=== PATIENT | male | born 1950 | race Caucasian/White ===

== ENCOUNTER 2022-08-26 05:11 | Inpatient (IN) | payer MEDICARE, BC ==
[~2022-08-26] VITALS: Ht 188 cm; Wt 115.2 kg
[~2022-08-26 05:11] MED LIST: ATOR40TA PO; HYDCHL25 PO; Hair, Skin & N1 EACH PO; METO50ER PO
[2022-08-26 05:32] LABS: BASOPHILS ABSOLUTE AUTO 0.08 K/mm3 (0.00-0.23); BASOPHILS PERCENT AUTO 1 % (0-2); EOSINOPHILS ABSOLUTE AUTO 0.24 K/mm3 (0.00-0.68); EOSINOPHILS PERCENT AUTO 3 % (0-6); Hematocrit 40.3 % (37.0-53.0); Hemoglobin 13.3 g/dL (13.5-17.5); IMMATURE GRAN ABSOLUTE AUTO 0.02 K/mm3 (0.00-0.10); IMMATURE GRAN PERCENT AUTO 0 % (0-1); LYMPHOCYTES ABSOLUTE AUTO 1.23 K/mm3 (0.84-5.20); LYMPHOCYTES PERCENT AUTO 13 % (21-46); MONOCYTES ABSOLUTE AUTO 0.72 K/mm3 (0.16-1.47); MONOCYTES PERCENT AUTO 8 % (4-13); Mean Corpuscular HGB 29.2 pg (26.0-34.0); Mean Corpuscular Volume 88 fL (80-100); Mean Platelet Volume 11.3 fL (9.1-12.4); NEUTROPHILS ABSOLUTE AUTO 7.23 K/mm3 (1.96-9.15); NEUTROPHILS PERCENT AUTO 76 % (41-73); Platelet Count 193 K/mm3 (150-400); RDW Coefficient Variation 13.1 % (11.7-14.2); RDW Standard Deviation 42.5 fL (35.1-46.3); Red Blood Cell Count 4.56 M/mm3 (4.30-5.90); White Blood Cell Count 9.52 K/mm3 (4.00-11.30)
[2022-08-26 05:54] LABS: Albumin, Blood 3.8 g/dL (3.4-5.0); Albumin/Globulin Ratio 1.1 (0.8-1.8); Bilirubin, Total 0.8 mg/dL (0.1-1.0); Bun/Creatinine Ratio 25.4 (12.0-20.0); Calcium, Blood 9.1 mg/dL (8.5-10.1); Creatinine, Blood 0.87 mg/dL (0.60-1.20); Globulin, Blood 3.6 g/dL (2.2-4.0); Total Protein, Blood 7.4 g/dL (6.4-8.2)
[2022-08-26 07:41] LABS: Influenza A, PCR NEGATIVE (NEGATIVE); Influenza B, PCR NEGATIVE (NEGATIVE); Resp Syncytial Virus, PCR NEGATIVE (NEGATIVE)
[2022-08-26 08:10] LABS: SARS-Cov-2 (COVID-19) PCR, MMC POSITIVE (NEGATIVE)
--- NOTE | 2022-08-26 18:00 | NUR ---
SHIFT SUMMARY PT HAS BEEN RESTING IN ROOM, THEY HAVE CALLED APPROPRIATELY FOR ASSISTANCE. PT HAS EXPRESSED A DESIRE TO THIS RN TO PURSUE ALL TREATEMENT OPTIONS FOR CURRENT CARDIAC CONDITION. PT HAS BEEN PLEASANT AND COOPERATIVE WITH ALL CARES. PT WAS TRANSITIONED FROM HEATED HIGH-FLOW NASAL CANNULA TO NASAL CANNULA AT 3L AND TOLERATED WELL WITH SPO2 REMAINING >93%. PT STATED AN IMPROVEMENT TO WORK OF BREATHING AFTER PRESCRIBED DIURETICS WERE ADMINISTERED. VITAL SIGNS HAVE REMAINED STABLE AND WNL.
[2022-08-27 04:01] LABS: BASOPHILS ABSOLUTE AUTO 0.03 K/mm3 (0.00-0.23); BASOPHILS PERCENT AUTO 0 % (0-2); EOSINOPHILS ABSOLUTE AUTO 0.03 K/mm3 (0.00-0.68); EOSINOPHILS PERCENT AUTO 0 % (0-6); Hematocrit 36.7 % (37.0-53.0); Hemoglobin 12.3 g/dL (13.5-17.5); IMMATURE GRAN ABSOLUTE AUTO 0.04 K/mm3 (0.00-0.10); IMMATURE GRAN PERCENT AUTO 0 % (0-1); LYMPHOCYTES ABSOLUTE AUTO 0.82 K/mm3 (0.84-5.20); LYMPHOCYTES PERCENT AUTO 6 % (21-46); MONOCYTES ABSOLUTE AUTO 1.22 K/mm3 (0.16-1.47); MONOCYTES PERCENT AUTO 9 % (4-13); Mean Corpuscular HGB 29.4 pg (26.0-34.0); Mean Corpuscular HGB Conc 33.5 g/dL (31.5-36.5); Mean Corpuscular Volume 88 fL (80-100); Mean Platelet Volume 11.6 fL (9.1-12.4); NEUTROPHILS ABSOLUTE AUTO 11.22 K/mm3 (1.96-9.15); NEUTROPHILS PERCENT AUTO 84 % (41-73); Platelet Count 176 K/mm3 (150-400); RDW Coefficient Variation 13.1 % (11.7-14.2); Red Blood Cell Count 4.19 M/mm3 (4.30-5.90); White Blood Cell Count 13.36 K/mm3 (4.00-11.30)
[2022-08-27 04:42] LABS: Albumin, Blood 3.4 g/dL (3.4-5.0); Bilirubin, Total 0.7 mg/dL (0.1-1.0); Bun/Creatinine Ratio 24.3 (12.0-20.0); Calcium, Blood 8.6 mg/dL (8.5-10.1); Creatinine, Blood 0.78 mg/dL (0.60-1.20); Globulin, Blood 3.3 g/dL (2.2-4.0); Potassium, Blood 3.7 mmol/L (3.5-5.5); Total Protein, Blood 6.7 g/dL (6.4-8.2)
--- NOTE | 2022-08-27 05:16 | NUR ---
SHIFT SUMMARY PT IS A&0X4, MOVES IND IN BED, USES THE URINAL IND, AND CALLS APPROPRIATELY. PT HAS BEEN SR/ST 90'S-100'S T/O THE SHIFT AND HIS HR RAISES W/ ACTIVITY. PT HAS BEEN ON 2L NC T/O NIGHT AND SPO2 >95%. HE DENIES ANY ANGINA, PAIN, SOB, AND N/V/D. HE WAS HAVING ISSUES FALLING ASLEEP SO 5MG MELATONIN WAS GIVEN AND HE WAS ABLE TO SLEEP DURING THE NIGHT. BED IS IN LOW AND CALL LIGHT IS IN REACH. WILL CONTINUE TO MONITOR UNTIL SHIFT REPORT IS GIVEN TO THE ONCOMING SHIFT RN. SEE NOTES FOR ANY UPDATES.
--- NOTE | 2022-08-27 19:45 | NUR ---
SHIFT SUMMARY PT A/OX4 AND COOPERATIVE OF CARE. VSS THROUGHOUT SHIFT WITH 02 SATS IN THE 90'S ON 2L NC. PT TITRATED OFF OF 02, SATS REMAIN IN THE 90'S, TOLERATED WELL. NO REPORT OF CHEST PAIN/PRESSURE THROUGHOUT SHIFT. PT REPORTS "SOME SHORTNESS OF BREATH WHEN I AM MOVING AROUND A LOT, BUT NOT TODAY. I CANNOT GO VERY FAR." PT INDEPENDENT IN ROOM, TOLERATES WELL. PT UPDATED BY THIS EVENING. FLUID RESTRICTION IN PLACE, SEE ORDERS. NO ACUTE EVENTS.
[2022-08-28 04:52] LABS: BASOPHILS ABSOLUTE AUTO 0.03 K/mm3 (0.00-0.23); BASOPHILS PERCENT AUTO 0 % (0-2); EOSINOPHILS ABSOLUTE AUTO 0.04 K/mm3 (0.00-0.68); EOSINOPHILS PERCENT AUTO 0 % (0-6); Hematocrit 36.7 % (37.0-53.0); Hemoglobin 12.2 g/dL (13.5-17.5); IMMATURE GRAN ABSOLUTE AUTO 0.06 K/mm3 (0.00-0.10); IMMATURE GRAN PERCENT AUTO 1 % (0-1); LYMPHOCYTES ABSOLUTE AUTO 0.86 K/mm3 (0.84-5.20); LYMPHOCYTES PERCENT AUTO 8 % (21-46); MONOCYTES ABSOLUTE AUTO 0.94 K/mm3 (0.16-1.47); MONOCYTES PERCENT AUTO 9 % (4-13); Mean Corpuscular HGB 29.2 pg (26.0-34.0); Mean Corpuscular HGB Conc 33.2 g/dL (31.5-36.5); Mean Corpuscular Volume 88 fL (80-100); Mean Platelet Volume 12.1 fL (9.1-12.4); NEUTROPHILS ABSOLUTE AUTO 9.12 K/mm3 (1.96-9.15); NEUTROPHILS PERCENT AUTO 83 % (41-73); Platelet Count 193 K/mm3 (150-400); Red Blood Cell Count 4.18 M/mm3 (4.30-5.90); White Blood Cell Count 11.05 K/mm3 (4.00-11.30)
[2022-08-28 05:31] LABS: Albumin, Blood 3.5 g/dL (3.4-5.0); Albumin/Globulin Ratio 1.1 (0.8-1.8); Bilirubin, Total 0.6 mg/dL (0.1-1.0); Calcium, Blood 8.9 mg/dL (8.5-10.1); Creatinine, Blood 0.79 mg/dL (0.60-1.20); Globulin, Blood 3.3 g/dL (2.2-4.0); Potassium, Blood 3.6 mmol/L (3.5-5.5); Total Protein, Blood 6.8 g/dL (6.4-8.2)
--- NOTE | 2022-08-28 05:32 | NUR ---
SHIFT SUMMARY PT IS A&OX4, BEEN SR 80'S-90'S ON TELEMETRY, IND IN THE ROOM, AND DENIES ANGINA/SOB/N/V/D. HE WAS ON ROOM AIR AT THE START OF THE SHIFT, AND WHEN HE FELL ASLEEP HE DESATURATED TO THE MID 80'S. HE WAS PUT ON 1L NC AND SPO2 HAS SUSTAINED >90% SINCE. PT IS COOPERATIVE, CALLS APPROPRIATELY, AND HAS SLEPT MOST OF THE NIGHT. BED IS IN LOW, THREE SIDE RAILS UP, AND THE CALL LIGHT IS IN REACH. WILL CONTINUE TO MONITOR UNTIL SHIFT REPORT IS GIVEN TO THE ONCOMING SHIFT RN. SEE NOTES FOR ANY UPDATES.
[2022-08-28] MEDS ORDERED: FURO20 PO (11:25)
[2022-08-28] MEDS ORDERED: LISI5 PO (11:25)
--- NOTE | 2022-08-28 12:41 | NUR ---
DISCHARGE UPDATE DISCHARGE PACKET GONE OVER WITH PT AT 1220. PT DISCHARGED AT 1240. PT REFUSED WHEELCHAIR FOR DISCHARGE WANTING TO "STRETCH MY LEGS." PT WALKED OUT OF HOSPTITAL, TOLERATED WELL. PT BELONGINGS IN BAGS AND WITH PT AND PT DURING DISCHARGE. DISCHARGE PACKET IN BAGS AND WITH PT FOR DISCHARGE. PT ON RA FOR DISCHARGE, NO REPORT OF SOB.
== END 2022-08-28 12:40 | disposition home or self-care (01) | DRG 177 ==
LOC: ER 05:11 → PCU 11:12
PROVIDERS: Hospitalist; Student in an Organized Health Care Education/Training Program; ADMIT Family Medicine
PROC: 3E0333Z Introduction of Anti-inflammatory into Peripheral Vein, Percutaneous Approach (ICD-10-PCS; principal; 2022-08-26)
PROC: 8E0ZXY6 Isolation (ICD-10-PCS; 2022-08-26)
DX: U07.1 COVID-19 (principal); I50.21 Acute systolic (congestive) heart failure; J96.91 Respiratory failure, unspecified with hypoxia; I24.8 Other forms of acute ischemic heart disease; R77.8 Other specified abnormalities of plasma proteins; Z66 Do not resuscitate; I35.0 Nonrheumatic aortic (valve) stenosis; R73.03 Prediabetes; I11.0 Hypertensive heart disease with heart failure; E78.5 Hyperlipidemia, unspecified; Z88.8 Allergy status to other drugs, medicaments and biological substances; Z79.02 Long term (current) use of antithrombotics/antiplatelets; Z79.899 Other long term (current) drug therapy; Z90.49 Acquired absence of other specified parts of digestive tract
CPT/HCPCS: 0241U; 36415; 71045; 80053; 83735; 83880; 84145; 84484; 85025; 93005; 93010; 93306; 94640; 94664; 94762; 96374; 96375; 99285-25; A9270; J1100; J1650; J1940

== ENCOUNTER 2023-08-16 10:32 | Day surgery (SDC) | payer MEDICARE, BC ==
[~2023-08-16] VITALS: Ht 188 cm; Wt 112.3 kg
[~2023-08-16 10:32] MED LIST changes: +ASPI81CH PO; +FURO20 PO; +LISI5 PO
--- NOTE | 2023-08-16 10:59 | NUR ---
08/16/23 1059 Sherice Aceves CALL LIGHT WITHIN REACH. TETRACAINE IN RIGHT EYE AT 1055 AND PLEDGETT IN AT 1056
[2023-08-16 12:15] VITALS: BP 153/87
--- NOTE | 2023-08-16 12:39 | NUR ---
08/16/23 1239 Demarco Son IV REMOVED INTACT. SITE WNL.
== END 2023-08-16 12:36 | disposition home or self-care (01) ==
LOC: ORSCSDS 10:32
PROVIDERS: Student in an Organized Health Care Education/Training Program
PROC: 08RJ3JZ Replacement of Right Lens with Synthetic Substitute, Percutaneous Approach (ICD-10-PCS; principal; 2023-08-16 12:00)
DX: H25.13 Age-related nuclear cataract, bilateral (principal); I10 Essential (primary) hypertension; E78.5 Hyperlipidemia, unspecified; E66.9 Obesity, unspecified; Z68.31 Body mass index [BMI] 31.0-31.9, adult; Z79.82 Long term (current) use of aspirin; Z79.899 Other long term (current) drug therapy
CPT/HCPCS: J2250; J3010; J7040; V2632

== ENCOUNTER 2023-08-23 11:18 | Day surgery (SDC) | payer MEDICARE, BC ==
--- NOTE | 2023-08-23 12:10 | NUR ---
08/23/23 1210 Sherice Aceves CALL LIGHT WITHIN REACH. TETRACAINE IN LEFT EYE AT 1205 AND PLEDGETT IN AT 1207
[2023-08-23 13:09] VITALS: BP 156/100
== END 2023-08-23 13:26 | disposition home or self-care (01) ==
LOC: ORSCSDS 11:18
PROVIDERS: Student in an Organized Health Care Education/Training Program
PROC: 08RK3JZ Replacement of Left Lens with Synthetic Substitute, Percutaneous Approach (ICD-10-PCS; principal; 2023-08-23 12:30)
DX: H25.12 Age-related nuclear cataract, left eye (principal); Z96.1 Presence of intraocular lens; E78.5 Hyperlipidemia, unspecified; I10 Essential (primary) hypertension; Z86.718 Personal history of other venous thrombosis and embolism; E66.9 Obesity, unspecified; Z68.32 Body mass index [BMI] 32.0-32.9, adult; Z79.82 Long term (current) use of aspirin; Z79.899 Other long term (current) drug therapy
CPT/HCPCS: J2250; J3010; J7040; V2632

== ENCOUNTER 2024-09-07 13:59 | Inpatient (IN) | payer OTHER ==
[~2024-09-07] VITALS: Ht 188 cm; Wt 113.7 kg
[~2024-09-07 13:59] MED LIST changes: +METO25ER PO; -METO50ER PO
[2024-09-07] MEDS ORDERED: Lidocaine 2% Jelly Uro-Jet TOP ONE (16:00)
[2024-09-07] MEDS ORDERED: NS 1,000 ML IV SCH ×2 (16:10→17:50)
[2024-09-07] MEDS ORDERED: Acetaminophen 325 MG TABLET PO PRN (17:45)
[2024-09-07] MEDS ORDERED: Ondansetron HCl 2 MG / ML 2ML Vial IV PRN (17:45)
[2024-09-07] MEDS ORDERED: HYDROmorphone HCl/Pf 1MG SYR IV PRN (17:45)
[2024-09-07] MEDS ORDERED: Metoclopramide HCl 5MG / ML 2ML Vial IV PRN (17:50)
[2024-09-07] MEDS ORDERED: TraZODone HCl 50 MG Tab PO PRN (17:50)
[2024-09-07] MEDS ORDERED: Pantoprazole Sodium 40 MG Injection IV SCH (18:00)
[2024-09-07] MEDS ORDERED: FLU VACC TS2024-25(6MOS UP)/PF 45 MCG/0.5 ML SYRINGE IM ONE (18:00)
[2024-09-07] MEDS ORDERED: ROSUVASTATIN CA40 MG PO (18:56)
[2024-09-07] MEDS ORDERED: VALSARTAN80 MG PO (18:57)
--- NOTE | 2024-09-07 19:30 | NUR ---
ARRIVAL TO UNIT PT ARRIVED FROM ER IN [facility]. ABLE TO GET OOB AND TRANSFER TO BED WITH SBA. PT HAS NG TUBE IN PLACE, HOOKED UP TO LIS. PT ALSO HAS GOEL IN PLACE DUE TO ACUTE RETENTION, DRAINING CYNTHIA COLORED URINE. PT TO BE STRICTLY NPO. AT BEDSIDE. LUNG SOUNDS ARE CLEAR T/O, DENIES ANY N/T T/O EXT'S. PT GIVEN CALL LIGHT AND EDUCATED ON HOW TO USE. VSS. NO OTHER CONCERNS AT THIS TIME, CALL LIGHT WITHIN REACH
[2024-09-07 19:39] VITALS: BP 148/81
[2024-09-08 03:35] VITALS: BP 121/75
--- NOTE | 2024-09-08 04:12 | NUR ---
SHIFT SUMMARY NO ACUTE CHANGES SINCE COMING TO THE FLOOR. DENIES ANY PAIN OR NAUSEA. HAS HAD NOT OUPUT IN THE NG TUBE SINCE COMING TO THE FLOOR. GOEL IN PLACE DRAINING CYNTHIA COLORED URINE. PT REMAINS NPO AT THIS TIME. NO OTHER CONCERNS AT THIS TIME, CALL LIGHT WITHIN REACH
[2024-09-08 06:41] LABS: BASOPHILS ABSOLUTE AUTO 0.03 K/mm3 (0.00-0.23); BASOPHILS PERCENT AUTO 1 % (0-2); Hematocrit 36.9 % (37.0-53.0); Hemoglobin 12.3 g/dL (13.5-17.5); LYMPHOCYTES PERCENT AUTO 19 % (21-46); MONOCYTES ABSOLUTE AUTO 1.29 K/mm3 (0.16-1.47); MONOCYTES PERCENT AUTO 24 % (4-13); Mean Corpuscular HGB 28.6 pg (26.0-34.0); Mean Corpuscular HGB Conc 33.3 g/dL (31.5-36.5); Mean Corpuscular Volume 86 fL (80-100); Mean Platelet Volume 11.4 fL (9.1-12.4); Platelet Count 180 K/mm3 (150-400); RDW Coefficient Variation 13.2 % (11.7-14.2); RDW Standard Deviation 41.2 fL (35.1-46.3); White Blood Cell Count 5.36 K/mm3 (4.00-11.30)
[2024-09-08 06:46] LABS: EOSINOPHILS ABSOLUTE AUTO 0.16 K/mm3 (0.00-0.68); EOSINOPHILS PERCENT AUTO 3 % (0-6); IMMATURE GRAN ABSOLUTE AUTO 0.03 K/mm3 (0.00-0.10); IMMATURE GRAN PERCENT AUTO 1 % (0-1); NEUTROPHILS ABSOLUTE AUTO 2.85 K/mm3 (1.96-9.15); NEUTROPHILS PERCENT AUTO 53 % (41-73)
[2024-09-08 07:06] LABS: Albumin, Blood 2.9 g/dL (3.4-5.0); Albumin/Globulin Ratio 0.9 (0.8-1.8); Bilirubin, Total 0.5 mg/dL (0.1-1.0); Bun/Creatinine Ratio 29.8 (12.0-20.0); Calcium, Blood 8.4 mg/dL (8.5-10.1); Creatinine, Blood 0.94 mg/dL (0.60-1.20); Globulin, Blood 3.3 g/dL (2.2-4.0); Magnesium, Blood 2.4 mg/dL (1.6-2.4); Potassium, Blood 3.1 mmol/L (3.5-5.5); Total Protein, Blood 6.2 g/dL (6.4-8.2)
[2024-09-08 07:52] VITALS: BP 138/70
[2024-09-08] MEDS ORDERED: Heparin Sodium 5000 Units/ML 1ML MDV SC SCH (09:00)
[2024-09-08] MEDS ORDERED: NS KCl 20mEq 1,000 ML IV SCH (13:00)
[2024-09-08 15:03] VITALS: BP 147/82
--- NOTE | 2024-09-08 17:36 | NUR ---
SHIFT SUMMARY PATIENT WAS ADMITTED FOR SBO, NG TUBE CLAMPED AT 1300 TODAY, HE HAS BEEN CONSUMING ICE CHIPS X3 CUPS OF 16OZ EACH, PT REPORTS FLATUS TODAY WITH A LITTLE AT FIRST BUT THEN A LARGEAMOUNT THIS AFTERNOON. DENIES N/V TODAY EVEN WITH NG CLAMPED. PLANS TO TAKE A SHOWER, NO ACUTE EVENTS THIS SHIFT, CALL LIGHT IN REACH.
[2024-09-08] MEDS ORDERED: Tamsulosin HCl 0.4 MG Cap PO SCH (19:15)
[2024-09-08 19:24] VITALS: BP 151/74
[2024-09-08] MEDS ORDERED: Potassium Chloride 20 MEQ/15 ML UDC PO ONE (21:25)
[2024-09-08] MEDS ORDERED: Losartan Potassium 50 MG Tab PO SCH (23:32)
[2024-09-09] MEDS ORDERED: Rosuvastatin Calcium 10 MG Tab PO SCH
[2024-09-09 03:36] VITALS: BP 148/94
[2024-09-09 06:13] LABS: BASOPHILS ABSOLUTE AUTO 0.04 K/mm3 (0.00-0.23); BASOPHILS PERCENT AUTO 1 % (0-2); EOSINOPHILS ABSOLUTE AUTO 0.19 K/mm3 (0.00-0.68); EOSINOPHILS PERCENT AUTO 3 % (0-6); Hematocrit 33.7 % (37.0-53.0); Hemoglobin 11.2 g/dL (13.5-17.5); IMMATURE GRAN ABSOLUTE AUTO 0.08 K/mm3 (0.00-0.10); IMMATURE GRAN PERCENT AUTO 1 % (0-1); LYMPHOCYTES ABSOLUTE AUTO 1.27 K/mm3 (0.84-5.20); LYMPHOCYTES PERCENT AUTO 20 % (21-46); MONOCYTES PERCENT AUTO 19 % (4-13); Mean Corpuscular HGB 28.9 pg (26.0-34.0); Mean Corpuscular HGB Conc 33.2 g/dL (31.5-36.5); Mean Corpuscular Volume 87 fL (80-100); Mean Platelet Volume 11.5 fL (9.1-12.4); NEUTROPHILS ABSOLUTE AUTO 3.54 K/mm3 (1.96-9.15); NEUTROPHILS PERCENT AUTO 56 % (41-73); Platelet Count 179 K/mm3 (150-400); RDW Coefficient Variation 12.9 % (11.7-14.2); Red Blood Cell Count 3.88 M/mm3 (4.30-5.90); White Blood Cell Count 6.32 K/mm3 (4.00-11.30)
[2024-09-09 06:50] LABS: Albumin, Blood 2.8 g/dL (3.4-5.0); Albumin/Globulin Ratio 0.9 (0.8-1.8); Bilirubin, Total 0.5 mg/dL (0.1-1.0); Bun/Creatinine Ratio 20.3 (12.0-20.0); Calcium, Blood 8.5 mg/dL (8.5-10.1); Creatinine, Blood 0.99 mg/dL (0.60-1.20); Magnesium, Blood 2.4 mg/dL (1.6-2.4); Potassium, Blood 3.6 mmol/L (3.5-5.5); Total Protein, Blood 5.8 g/dL (6.4-8.2)
[2024-09-09 07:23] VITALS: BP 161/91
[2024-09-09] MEDS ORDERED: Losartan Potassium 50 MG Tab PO SCH (09:00)
[2024-09-09] MEDS ORDERED: Multivitamins/Minerals TAB PO SCH (09:00)
[2024-09-09] MEDS ORDERED: Aspirin 81 MG Chew PO SCH (09:00)
[2024-09-09] MEDS ORDERED: Metoprolol Succinate 25 MG TABCR PO SCH ×2 (09:00)
[2024-09-09] MEDS ORDERED: MIRALAX17 GM PO (13:45)
[2024-09-09] MEDS ORDERED: FT SENNA-S 8.61 EACH PO (13:45)
[2024-09-09] MEDS ORDERED: FLOMAX0.4 MG PO (13:46)
--- NOTE | 2024-09-09 15:03 | NUR ---
DISCHARGE SUMMARY S/P SBO, A/OX4, VSS, TOLERATING PO, INCREASED DIET AND HE WAS ABLE TO TOLERATE SOFT LUNCH WITH NO CONCERNS, BM TODAY. DISCUSSED DISCHARGE INSTRUCTIONS WITH HIM INCLUDING HOME CARE, MEDICATIONS, AND FOLLOW UP APPOINTMENTS. NO QUESTIONS AT THIS TIME, ESCORTED OUT VIA WC TO [employer]IVATE AUT[employer] TO GO HOME WITH HIS .
== END 2024-09-09 14:30 | disposition home or self-care (01) | DRG 389 ==
LOC: ER 13:59 → SURS 16:03
PROVIDERS: ADMIT Internal Medicine
DX: K56.609 Unspecified intestinal obstruction, unspecified as to partial versus complete obstruction (principal); E87.20 Acidosis, unspecified; I50.22 Chronic systolic (congestive) heart failure; N17.9 Acute kidney failure, unspecified; Z28.29 Immunization not carried out because of patient decision for other reason; I11.0 Hypertensive heart disease with heart failure; E78.5 Hyperlipidemia, unspecified; N40.1 Benign prostatic hyperplasia with lower urinary tract symptoms; R33.8 Other retention of urine; E87.6 Hypokalemia; Z90.49 Acquired absence of other specified parts of digestive tract; I35.0 Nonrheumatic aortic (valve) stenosis; Z79.82 Long term (current) use of aspirin; Z79.899 Other long term (current) drug therapy
CPT/HCPCS: 36415; 71045; 80053; 83735; 85025; 96360; 96361; 99285-25; A9270; G0378; J1644; J2470; J3480; J7030

== ENCOUNTER 2025-06-21 11:58 | Day surgery (SDC) | payer OTHER ==
[~2025-06-21] VITALS: Ht 185.4 cm; Wt 116.4 kg
[2025-06-21] VITALS (12 sets, daily range): BP systolic 133–169; BP diastolic 73–90
[~2025-06-21 11:58] MED LIST changes: +FLOMAX0.4 MG PO; +FT SENNA-S 8.61 EACH PO; +MAGMIND48 MG PO; +METF500 PO; +MIRALAX17 GM PO; +Methocarbamol500 MG PO; +ROSUVASTATIN CA40 MG PO; +VALSARTAN80 MG PO
[2025-06-21] MEDS ORDERED: TURMERIC500 M2 PO (12:43)
[2025-06-21] MEDS ORDERED: FentaNYL Citrate 50 MCG/ML 2 ML Injection ONE ×2 (14:05→16:04)
[2025-06-21] MEDS ORDERED: Midazolam HCl 1MG / ML 2ML Vial ONE (14:05)
[2025-06-21] MEDS ORDERED: Bupivacaine 0.5% W/EPI 1:200000 SDV 30 ML Vial ONE (15:36)
[2025-06-21] MEDS ORDERED: Lidocaine HCl 4% 5 ML SDA ONE (15:37)
[2025-06-21] MEDS ORDERED: Dexamethasone Sod Phos 10 MG/ML 1ML VIAL ONE ×2 (16:02→16:06)
[2025-06-21] MEDS ORDERED: Ondansetron HCl 2 MG / ML 2ML Vial ONE ×2 (16:02→16:06)
[2025-06-21] MEDS ORDERED: Rocuronium Bromide 10 MG/ML 5ML Injection IV ONE (16:02)
[2025-06-21] MEDS ORDERED: Sugammadex Sodium 200 MG/2ML SDV (100 MG/ML) ONE (16:07)
[2025-06-21] MEDS ORDERED: HYDROmorphone HCl/Pf 1MG SYR IV PRN (16:45)
[2025-06-21] MEDS ORDERED: FentaNYL Citrate 50 MCG/ML 2 ML Injection IV PRN ×2 (16:45→16:50)
[2025-06-21] MEDS ORDERED: Albuterol 2.5 MG/3 ML VIAL INH PRN (16:45)
[2025-06-21] MEDS ORDERED: Ondansetron HCl 2 MG / ML 2ML Vial IV PRN (16:45)
[2025-06-21] MEDS ORDERED: OxyCODONE 5 mg/Acetamin 325 mg TABLET PO PRN (18:10)
--- NOTE | 2025-06-21 18:37 | NUR ---
Dressing to procedure site clean, dry, intact with no visible drainage, swelling, erythema or bruising noted. Discharge instructions reviewed with patient. Patient verbalizes understanding. Copy given to patient to take home.
== END 2025-06-21 18:49 | disposition home or self-care (01) ==
LOC: ORD 11:58 → ORSCMMR 11:58 → ORD 13:30 → ORSCMMR 18:49
PROVIDERS: Surgery
PROC: 8E0W4CZ Robotic Assisted Procedure of Trunk Region, Percutaneous Endoscopic Approach (ICD-10-PCS; principal; 2025-06-21 14:30)
PROC: 0YUA4JZ Supplement Bilateral Inguinal Region with Synthetic Substitute, Percutaneous Endoscopic Approach (ICD-10-PCS; principal; 2025-06-21 14:30)
DX: K40.30 Unilateral inguinal hernia, with obstruction, without gangrene, not specified as recurrent (principal); K40.90 Unilateral inguinal hernia, without obstruction or gangrene, not specified as recurrent; I10 Essential (primary) hypertension; E78.5 Hyperlipidemia, unspecified; I25.10 Atherosclerotic heart disease of native coronary artery without angina pectoris; G47.33 Obstructive sleep apnea (adult) (pediatric); E11.9 Type 2 diabetes mellitus without complications; Z79.84 Long term (current) use of oral hypoglycemic drugs; Z79.899 Other long term (current) drug therapy; Z79.82 Long term (current) use of aspirin; E66.9 Obesity, unspecified; Z68.33 Body mass index [BMI] 33.0-33.9, adult
CPT/HCPCS: 82947; C1781; J1100; J2003; J2250; J2405; J2704; J3010; J7120

== ENCOUNTER 2025-09-14 18:19 | Observation (INO) | payer OTHER ==
[~2025-09-14] VITALS: Ht 188 cm; Wt 120.7 kg
[~2025-09-14 18:19] MED LIST changes: -FLOMAX0.4 MG PO; -METF500 PO; +METF500C PO; +TAMS.4ER PO; +TURMERIC500 M2 PO
[2025-09-14 18:52] LABS: BASOPHILS ABSOLUTE AUTO 0.04 K/mm3 (0.00-0.23); BASOPHILS PERCENT AUTO 0 % (0-2); EOSINOPHILS ABSOLUTE AUTO 0.14 K/mm3 (0.00-0.68); EOSINOPHILS PERCENT AUTO 1 % (0-6); Hematocrit 35.4 % (37.0-53.0); Hemoglobin 11.8 g/dL (13.5-17.5); IMMATURE GRAN ABSOLUTE AUTO 0.03 K/mm3 (0.00-0.10); IMMATURE GRAN PERCENT AUTO 0 % (0-1); LYMPHOCYTES ABSOLUTE AUTO 0.75 K/mm3 (0.84-5.20); LYMPHOCYTES PERCENT AUTO 7 % (21-46); MONOCYTES ABSOLUTE AUTO 1.27 K/mm3 (0.16-1.47); MONOCYTES PERCENT AUTO 12 % (4-13); Mean Corpuscular HGB Conc 33.3 g/dL (31.5-36.5); Mean Corpuscular Volume 89 fL (80-100); NEUTROPHILS ABSOLUTE AUTO 8.10 K/mm3 (1.96-9.15); NEUTROPHILS PERCENT AUTO 78 % (41-73); NRBC ABSOLUTE 0.00 K/mm3 (0.00-0.02); NRBC Auto 0.0 /100 WBC (0.0-0.2); Platelet Count 167 K/mm3 (150-400); RDW Coefficient Variation 12.3 % (11.7-14.2); RDW Standard Deviation 40.6 fL (35.1-46.3)
[2025-09-14 19:18] LABS: Alanine Aminotransfer (ALT/SGP 39.0 U/L (12-78); Albumin, Blood 3.7 g/dL (3.4-5.0); Albumin/Globulin Ratio 1.1 (0.8-1.8); Anion Gap 7.0 mmol/L (3-11); Aspartate Aminotrans (AST/SGOT 31.0 U/L (12-37); Bilirubin, Total 0.8 mg/dL (0.1-1.0); Blood Urea Nitrogen 16.0 mg/dL (8-24); CO2, Blood 27.0 mmol/L (21-32); Calcium, Blood 8.6 mg/dL (8.5-10.1); Chloride, Blood 104.0 mmol/L (98-108); Creatinine, Blood 0.82 mg/dL (0.60-1.20); Globulin, Blood 3.3 g/dL (2.2-4.0); Glucose, Blood 116.0 mg/dL (70-99); Potassium, Blood 3.8 mmol/L (3.5-5.5); Sodium, Blood 134.0 mmol/L (136-145); Total Protein, Blood 7.0 g/dL (6.4-8.2)
[2025-09-14 19:25] LABS: Influenza A, PCR NEGATIVE (NEGATIVE); Influenza B, PCR NEGATIVE (NEGATIVE); Resp Syncytial Virus, PCR NEGATIVE (NEGATIVE); SARS-Cov-2 (COVID-19) PCR, MMC NEGATIVE (NEGATIVE)
[2025-09-14] MEDS ORDERED: NS 1,000 ML IV SCH (19:55)
[2025-09-14] MEDS ORDERED: Ketorolac Tromethamine 15mg Vial IV ONE (19:55)
[2025-09-14 20:02] LABS: Source, Urine Clean Catch
[2025-09-14 20:07] LABS: Bilirubin, Urine Neg (Neg); Glucose Qualitative, Urine Neg (Neg); Ketones, Urine Neg (Neg); Leukocyte Esterase, Urine Neg (Neg); Protein, Urine 2+ (Neg); Specific Gravity, Urine 1.010 (1.003-1.022); Urobilinogen, Urine 2+ (Normal)
[2025-09-14 20:16] LABS: Color, Urine Yellow (P-Yellow)
[2025-09-14 20:20] LABS: Red Blood Cells, Urine 0-2 /hpf (0-2); White Blood Cells, Urine 0-2 /hpf (0-5)
[2025-09-15] MEDS ORDERED: FLU VACC TS2025-26(6MOS UP)/PF 45 MCG/0.5 ML SYRINGE IM ONE (00:10)
[2025-09-15 01:25] LABS: BASOPHILS ABSOLUTE AUTO 0.06 K/mm3 (0.00-0.23); BASOPHILS PERCENT AUTO 1 % (0-2); EOSINOPHILS ABSOLUTE AUTO 0.13 K/mm3 (0.00-0.68); EOSINOPHILS PERCENT AUTO 1 % (0-6); Hematocrit 35.5 % (37.0-53.0); Hemoglobin 11.9 g/dL (13.5-17.5); IMMATURE GRAN ABSOLUTE AUTO 0.04 K/mm3 (0.00-0.10); IMMATURE GRAN PERCENT AUTO 0 % (0-1); LYMPHOCYTES ABSOLUTE AUTO 1.01 K/mm3 (0.84-5.20); LYMPHOCYTES PERCENT AUTO 9 % (21-46); MONOCYTES ABSOLUTE AUTO 1.75 K/mm3 (0.16-1.47); MONOCYTES PERCENT AUTO 15 % (4-13); Mean Corpuscular HGB Conc 33.5 g/dL (31.5-36.5); Mean Corpuscular Volume 89 fL (80-100); NEUTROPHILS ABSOLUTE AUTO 8.49 K/mm3 (1.96-9.15); NEUTROPHILS PERCENT AUTO 74 % (41-73); NRBC ABSOLUTE 0.00 K/mm3 (0.00-0.02); NRBC Auto 0.0 /100 WBC (0.0-0.2); Platelet Count 159 K/mm3 (150-400); RDW Coefficient Variation 12.3 % (11.7-14.2); RDW Standard Deviation 40.4 fL (35.1-46.3)
[2025-09-15 02:29] LABS: U Amphetamine Screen Not Detected; U Barbiturate Screen Not Detected; U Benzodiazapine Screen Not Detected; U Buprenorphine Screen Not Detected; U Cannabinoids Screen Not Detected; U Cocaine Screen Not Detected; U Methadone Screen Not Detected; U Methamphetamine Screen Not Detected; U Opiates Screen Not Detected; U Oxycodone Screen Not Detected; U Phencyclidine Screen Not Detected
[2025-09-15 02:41] LABS: Alanine Aminotransfer (ALT/SGP 38.0 U/L (12-78); Albumin, Blood 3.6 g/dL (3.4-5.0); Albumin/Globulin Ratio 1.1 (0.8-1.8); Anion Gap 8.0 mmol/L (3-11); Aspartate Aminotrans (AST/SGOT 28.0 U/L (12-37); Bilirubin, Total 1.2 mg/dL (0.1-1.0); Blood Urea Nitrogen 18.0 mg/dL (8-24); CO2, Blood 28.0 mmol/L (21-32); Calcium, Blood 8.7 mg/dL (8.5-10.1); Chloride, Blood 103.0 mmol/L (98-108); Creatinine, Blood 0.94 mg/dL (0.60-1.20); Globulin, Blood 3.4 g/dL (2.2-4.0); Glucose, Blood 122.0 mg/dL (70-99); Potassium, Blood 3.7 mmol/L (3.5-5.5); Sodium, Blood 135.0 mmol/L (136-145); Total Protein, Blood 7.0 g/dL (6.4-8.2)
--- NOTE | 2025-09-15 02:52 | NUR ---
ADMIT NOTE PATIENT ADMITTED TO MEDICAL FLOOR. PATIENT BROUGHT TO THE FLOOR VIA GURNEY AND WAS SLIDE TRANSFERRED TO BED. ALERT AND ORIENTED X4 WITH SOME CONFUSION. PATIENT COMPLAINS OF BACK PAIN AT THIS TIME THAT HAS BEEN OCCURING OVER THE PAST MONTH. PATIENT WAS ASSISTED INTO A GOWN. PATIENT AND ORIENTED TO ROOM AND CALL LIGHT. REMAINS AT BEDSIDE. CALL LIGHT WITHIN REACH. BED IN LOWEST POSITION FOR SAFETY BED RAILS UP X3.
[2025-09-15 03:19] LABS: Thyroid Stimulating Hormone 1.81 uIU/mL (0.360-4.800)
[2025-09-15 03:58] LABS: Influenza A/2009-H1 Not Detected (NOT DETECT); SARS-Cov-2 (COVID-19), BioFire Not Detected (NOT DETECT)
[2025-09-15 05:21] VITALS: BP 155/70
--- NOTE | 2025-09-15 05:58 | NUR ---
SHIFT SUMMARY PATIENT ADMITTED FOR ACUTE ENCEPHALOPATHY. PATIENT ALERT AND ORIENTED X4 WITH SOME CONFUSION NOTED. PATIENT COMPLAINED OF SOME NAUSEA WITH NO EMESIS THIS SHIFT. PATIENT 1-2 PERSON ASSIST TO STAND. NO ACUTE OVERNIGHT EVENTS. PATIENT RESTING WITH EYES CLOSED RESPIRATIONS EVEN AND UNLABORED. BED IN LOWEST POSITION FOR SAFETY. BED RAILS UP X2. CALL LIGHT WITHIN REACH. AT BEDSIDE.
[2025-09-15] MEDS ORDERED: NS 1,000 ML IV ONE (06:35)
[2025-09-15 07:32] VITALS: BP 158/86
[2025-09-15] MEDS ORDERED: Enoxaparin 40 MG/0.4 ML SYR SC SCH (09:00)
--- NOTE | 2025-09-15 18:20 | NUR ---
PATIENT ALERT AND ABLE TO EXPRESS NEEDS TO STAFF. COOPERATIVE WITH CARE. HOPING FOR MRI TOMORROW AND DISCHARGE AFTER WITH WALKER. PATIENT HAS NO CONCERNS
[2025-09-15 18:27] VITALS: BP 148/66
[2025-09-15 19:46] VITALS: BP 159/67
[2025-09-15 23:33] VITALS: BP 162/61
[2025-09-16] VITALS (11 sets, daily range): BP systolic 144–194; BP diastolic 70–123
--- NOTE | 2025-09-16 03:36 | NUR ---
CALLED DR. BILLINGS AND REQUESTED THAT ORDER FOR TYLENOL MAY BE GIVEN FOR FEVER WELL PAIN PRN, ORDER RECEIVED. UPDATED ORDER IN EMAR. REPORTED TO PRIMARY RN.
[2025-09-16 04:48] LABS: BASOPHILS ABSOLUTE AUTO 0.05 K/mm3 (0.00-0.23); BASOPHILS PERCENT AUTO 0 % (0-2); EOSINOPHILS ABSOLUTE AUTO 0.21 K/mm3 (0.00-0.68); EOSINOPHILS PERCENT AUTO 2 % (0-6); Hematocrit 33.1 % (37.0-53.0); Hemoglobin 11.2 g/dL (13.5-17.5); IMMATURE GRAN ABSOLUTE AUTO 0.04 K/mm3 (0.00-0.10); IMMATURE GRAN PERCENT AUTO 0 % (0-1); LYMPHOCYTES ABSOLUTE AUTO 0.74 K/mm3 (0.84-5.20); LYMPHOCYTES PERCENT AUTO 7 % (21-46); MONOCYTES ABSOLUTE AUTO 2.20 K/mm3 (0.16-1.47); MONOCYTES PERCENT AUTO 20 % (4-13); Mean Corpuscular HGB Conc 33.8 g/dL (31.5-36.5); Mean Corpuscular Volume 87 fL (80-100); NEUTROPHILS ABSOLUTE AUTO 8.02 K/mm3 (1.96-9.15); NEUTROPHILS PERCENT AUTO 71 % (41-73); NRBC ABSOLUTE 0.00 K/mm3 (0.00-0.02); NRBC Auto 0.0 /100 WBC (0.0-0.2); Platelet Count 176 K/mm3 (150-400); RDW Coefficient Variation 12.4 % (11.7-14.2); RDW Standard Deviation 39.8 fL (35.1-46.3)
[2025-09-16 05:07] LABS: Alanine Aminotransfer (ALT/SGP 32.0 U/L (12-78); Albumin, Blood 3.3 g/dL (3.4-5.0); Albumin/Globulin Ratio 1.0 (0.8-1.8); Anion Gap 11.0 mmol/L (3-11); Aspartate Aminotrans (AST/SGOT 22.0 U/L (12-37); Bilirubin, Total 1.0 mg/dL (0.1-1.0); Blood Urea Nitrogen 16.0 mg/dL (8-24); CO2, Blood 23.0 mmol/L (21-32); Calcium, Blood 8.4 mg/dL (8.5-10.1); Chloride, Blood 102.0 mmol/L (98-108); Creatinine, Blood 0.91 mg/dL (0.60-1.20); Globulin, Blood 3.2 g/dL (2.2-4.0); Glucose, Blood 122.0 mg/dL (70-99); Potassium, Blood 3.5 mmol/L (3.5-5.5); Sodium, Blood 132.0 mmol/L (136-145); Total Protein, Blood 6.5 g/dL (6.4-8.2)
--- NOTE | 2025-09-16 05:47 | NUR ---
SHIFT SUMMARY. PT IS A&OX4, THIS SHIFT. PLEASANT AND COOPERATIVE WITH CARE. PT HAD A FEVER THIS SHIFT, MEDICATED WITH TYLENOL PER EMAR. NO OTHER ACUTE CHANGES. PT REPORTS GENERALIZED WEAKNESS. PT RESTED THIS SHIFT WITH EVEN AND UNLABORED RESPIRATIONS, BED IN LOWEST POSITION, AND CALL LIGHT WITHIN REACH.
--- NOTE | 2025-09-16 08:37 | NUR ---
ELEVATED BLOOD PRESSURE-HOSPITALIST NOTIFIED PATIENT WITH ELEVETAED BLOOD PRESSURES OVERNIGHT, 160s SBP. BP THIS AM 194/100, HOSPITALIST NOTIFIED AND STATED WOULD REVIEW. WILL CONTINUE TO MONITOR.
--- NOTE | 2025-09-16 18:42 | NUR ---
SHIFT SUMMARY PATIENT A/OX4, ABLE TO MAKE NEEDS KNOWN. PLEASANT AND COOPERATIVE WITH CARE. PATIENT WITH ELEVATED BLOOD PRESSURES THIS SHIFT, HIGHEST OF 180s/100s, MD AWARE AND PO BLOOD PRESSURE MEDICATIONS ADJUSTED. MRI WAS COMPLETED THIS EVENING, AWAITING RESULTS. PATIENT WITH URINARY RETENTION THIS AM, WITH FREQUENCY, URGENCY, AND BLADDER DISCOMFORT/PRESSURE. BLADDER SCAN SHOWED 325 ML, DR. CONLEY ORDERED STRAIGHT CATH AND 900 ML OBTAINED. SINCE STRAIGHT CATH PATIENT CONTINUES WITH FREQUENCY AND URGENCY, WITH MINIMAL OUTPUT WHEN URINATING. PATIENT NOW WITH HEMATURIA POST STRAIGHT CATH. MD ORDERED ONE TIME DOSE OF FLOMAX. PATIENT FEBRILE THIS EVENING, PRN TYLENOL ADMINISTERED PER NOV. PATIENT FAMILY AT BEDSIDE AND UPDATED ON PATIENT STATUS. NO OTHER CONCERNS AT THIS TIME, WILL CONTINUE TO MONITOR.
--- NOTE | 2025-09-17 01:28 | NUR ---
THIS [employer]SE[employer] ASSUMED CARE AT 2210, SBAR RECEIVED FROM EUGENIO FAIR.
--- NOTE | 2025-09-17 03:55 | NUR ---
SHIFT SUMMARY NO ACUTE EVENTS DURING THIS SHIFT. PT IS A/OX4, ABLE TO MAKE HIS NEEDS KNOWN AND COOPERATIVE WITH CARE. BLADDER SCAN POST VOID SHOWING 181MLS RETENTION, OUTPUT PT VOIDED 275MLS. PT DENIES PAIN AND DISCOMFORT. BED AT THE LOWEST POSITION, CALL LIGHT W/I REACH.
[2025-09-17 04:00] VITALS: BP 150/80
[2025-09-17 05:30] LABS: BASOPHILS ABSOLUTE AUTO 0.05 K/mm3 (0.00-0.23); BASOPHILS PERCENT AUTO 1 % (0-2); EOSINOPHILS ABSOLUTE AUTO 0.18 K/mm3 (0.00-0.68); EOSINOPHILS PERCENT AUTO 2 % (0-6); Hematocrit 32.2 % (37.0-53.0); Hemoglobin 10.8 g/dL (13.5-17.5); IMMATURE GRAN ABSOLUTE AUTO 0.06 K/mm3 (0.00-0.10); IMMATURE GRAN PERCENT AUTO 1 % (0-1); LYMPHOCYTES ABSOLUTE AUTO 0.63 K/mm3 (0.84-5.20); LYMPHOCYTES PERCENT AUTO 6 % (21-46); MONOCYTES ABSOLUTE AUTO 1.75 K/mm3 (0.16-1.47); MONOCYTES PERCENT AUTO 17 % (4-13); Mean Corpuscular HGB Conc 33.5 g/dL (31.5-36.5); Mean Corpuscular Volume 87 fL (80-100); NEUTROPHILS ABSOLUTE AUTO 7.78 K/mm3 (1.96-9.15); NEUTROPHILS PERCENT AUTO 75 % (41-73); NRBC ABSOLUTE 0.00 K/mm3 (0.00-0.02); NRBC Auto 0.0 /100 WBC (0.0-0.2); Platelet Count 197 K/mm3 (150-400); RDW Coefficient Variation 12.4 % (11.7-14.2); RDW Standard Deviation 39.4 fL (35.1-46.3)
[2025-09-17 05:42] LABS: Alanine Aminotransfer (ALT/SGP 40.0 U/L (12-78); Albumin, Blood 3.1 g/dL (3.4-5.0); Albumin/Globulin Ratio 0.9 (0.8-1.8); Anion Gap 10.0 mmol/L (3-11); Aspartate Aminotrans (AST/SGOT 30.0 U/L (12-37); Bilirubin, Total 1.1 mg/dL (0.1-1.0); Blood Urea Nitrogen 14.0 mg/dL (8-24); CO2, Blood 23.0 mmol/L (21-32); Calcium, Blood 8.4 mg/dL (8.5-10.1); Chloride, Blood 101.0 mmol/L (98-108); Creatinine, Blood 0.83 mg/dL (0.60-1.20); Globulin, Blood 3.3 g/dL (2.2-4.0); Glucose, Blood 153.0 mg/dL (70-99); Potassium, Blood 3.1 mmol/L (3.5-5.5); Sodium, Blood 131.0 mmol/L (136-145); Total Protein, Blood 6.4 g/dL (6.4-8.2)
[2025-09-17 07:44] VITALS: BP 139/69
[2025-09-17] MEDS ORDERED: POTCHL20ER PO (11:21)
--- NOTE | 2025-09-17 12:45 | NUR ---
Pt. is dressed and awaiting discharge when he welcomes my visit. Pt. is pleasant and matters of rafael and belief are considered. Prayed with the Pt. Pt. displayed evidence of being encouraged and verbalized gratitude for the spiritual care visit. Pt. requested that this [place] communicate to his nurse that he was ready to go home.
--- NOTE | 2025-09-17 13:34 | NUR ---
DISCHARGE NOTE PATIENT A/OX4, ABLE TO MAKE NEEDS KNOWN. PLEASANT AND COOPERATIVE WITH CARE. 1 PERSON ASSIST WITH FWW, INSURANCE DENIED PATIENT TO RECIEVE A WALKER AT DISCHARGE AND PATIENT'S SON STATES WILL BUY A WALKER AT [employer] PRIOR TO GOING HOME. PATIENT EDUCATED REGARDING URINARY RETENTION, CURRENT MEDICAL DIAGNOSIS, AND NEW MEDICATION WHICH HAVE BEEN FAXED TO PATIENT'S PREFERRED PHARMACY, [facility]. PATIENT AND FAMILY WITH NO QUESTIONS AT TIME OF DISCHARGE. IV REMOVED AND PATIENT LEFT FACILITY VIA WHEELCHAIR WITH ALL BELONGINGS.
== END 2025-09-17 13:20 | disposition home or self-care (01) ==
LOC: ER 18:19 → MEDS 18:20 → ENPENDDIS 09-17 11:11 → MEDS 09-17 13:20
PROVIDERS: Family Medicine; Student in an Organized Health Care Education/Training Program; ADMIT Internal Medicine
DX: G92.8 Other toxic encephalopathy (principal); I11.0 Hypertensive heart disease with heart failure; N40.1 Benign prostatic hyperplasia with lower urinary tract symptoms; R33.9 Retention of urine, unspecified; I50.22 Chronic systolic (congestive) heart failure; I35.0 Nonrheumatic aortic (valve) stenosis; Z79.899 Other long term (current) drug therapy
CPT/HCPCS: 0202U; 36415; 70450; 70551; 71046; 72132; 80053; 81001; 82140; 82607; 82746; 83880; 84443; 84484; 85025; 87637; 93005; 93010; 96372; 96374; 97116; 97161; 97165; 97530; 99285-25; A6590; A9270; G0378; J1650; J1885; J7030; Q9967